=== PATIENT | male | born 1935 | race Caucasian/White ===

== ENCOUNTER 2024-06-05 17:56 | Emergency (ER) | payer MEDICARE, OTHER ==
[2024-06-05 18:50] LABS: BASOPHILS PERCENT AUTO 0.1 % (0.0-1.0); EOSINOPHILS PERCENT AUTO 0.3 % (1.0-3.0); HEMATOCRIT 31.1 % (40.0-54.0); HEMOGLOBIN 10.1 g/dL (14.0-18.0); MEAN CORPUSCULAR HEMOGLOBIN 32.2 pg (27.0-34.0); MEAN CORPUSCULAR HGB CONC 32.5 g/dL (33.0-35.0); MONOCYTES PERCENT AUTO 9.3 % (2-8); NEUTROPHILS PERCENT AUTO 84.3 % (42.2-75.2); PLATELET COUNT,PLT 154 10^3/uL (150-450); RED BLOOD CELL COUNT 3.14 10^6/uL (4.6-6.2); WHITE BLOOD CELL COUNT,WBC 7.3 10^3/uL (5.0-10.0)
[2024-06-05 19:13] LABS: ALANINE AMINOTRANSFERASE,ALT 17 U/L (16-63); ALBUMIN 3.2 g/dL (3.4-5.0); ALKALINE PHOSPHATASE 103 U/L (46-116); ANION GAP 12.9 mEq/L (7-13); ASPARTATE AMNIOTRANSFERASE,AST 22 U/L (15-37); BILIRUBIN TOTAL 0.5 mg/dL (0.2-1.0); BLOOD UREA NITROGEN,BUN 54 mg/dL (7-18); BUN/CREATININE RATIO 23.2 (No establ ref range); CALCIUM 9.6 mg/dL (8.5-10.1); CARBON DIOXIDE,CO2 24 mmol/L (21-32); CHLORIDE,CL 102 mmol/L (98-107); CREATININE 2.33 mg/dL (0.70-1.30); EST CRCL DRUG DOSING (CG) 18.25 mL/min; GLUCOSE RANDOM 111 mg/dL (70-99); MAGNESIUM 1.6 mg/dL (1.8-2.4); POTASSIUM,K 4.9 mmol/L (3.5-5.1); PROTEIN TOTAL,TP 6.6 g/dL (6.4-8.2); SODIUM,NA 134 mmol/L (136-145)
[2024-06-05 19:14] LABS: A/G RATIO 0.94; C-REACTIVE PROTEIN < 0.50 ng/dL (<=0.50); ESTIMATED GFR 27 mL/min (>=60); LACTIC ACID 0.9 mmol/L (0.4-2.0)
[2024-06-05] MEDS: Aspirin 81 MG Tab.Chew PO ONE (19:29)
[2024-06-05] MEDS: Sodium Chloride 0.9% 1,000 ML IV ONE (19:29)
[2024-06-05 19:34] LABS: APPEARANCE,URINE CLEAR (CLEAR); BILIRUBIN,URINE NEGATIVE (NEGATIVE); COLOR,URINE YELLOW (YELLOW); GLUCOSE,URINE NEGATIVE (NEGATIVE); KETONES,URINE NEGATIVE (NEGATIVE); LEUKOCYTE ESTERASE,URINE NEGATIVE (NEGATIVE); NITRITE,URINE NEGATIVE (NEGATIVE); OCCULT BLOOD,URINE SMALL (NEGATIVE); PROTEIN,URINE >=300 (NEGATIVE); UROBILINOGEN,URINE 0.2 mg/dL (0.2-1.0)
[2024-06-05 19:45] LABS: BACTERIA,URINE RARE /HPF (0-FEW/HPF); EPITHELIAL CELLS,URINE RARE /HPF (NOT SEEN); RBC,URINE 0-5 /HPF (0-5); WBC,URINE 0-5 /HPF (0-5/HPF)
[2024-06-05 20:03] VITALS: BP 167/80; PULSE 73
== END 2024-06-05 20:52 ==
LOC: DL.ED 17:56
DX: I21.4 Non-ST elevation (NSTEMI) myocardial infarction (principal); I10 Essential (primary) hypertension; Z86.16 Personal history of COVID-19; Z79.899 Other long term (current) drug therapy
CPT/HCPCS: 36415; 71045; 80053; 81001; 83605; 83735; 84484; 85025; 86140; 93005; 93010; 99285; A9270-GY; J7030

== ENCOUNTER 2024-08-25 11:37 | Emergency (ER) | payer MEDICARE, OTHER ==
[2024-08-25 12:12] LABS: BASOPHILS PERCENT AUTO 0.4 % (0.0-1.0); EOSINOPHILS PERCENT AUTO 0.2 % (1.0-3.0); HEMOGLOBIN 10.4 g/dL (14.0-18.0); MEAN CORPUSCULAR HEMOGLOBIN 31.1 pg (27.0-34.0); MEAN CORPUSCULAR HGB CONC 32.5 g/dL (33.0-35.0); MEAN CORPUSCULAR VOLUME 95.8 fL (80-100); MONOCYTES PERCENT AUTO 8.9 % (2-8); NEUTROPHILS PERCENT AUTO 83.5 % (42.2-75.2); PLATELET COUNT,PLT 277 10^3/uL (150-450); RED BLOOD CELL COUNT 3.34 10^6/uL (4.6-6.2); WHITE BLOOD CELL COUNT,WBC 10.8 10^3/uL (5.0-10.0)
[2024-08-25 12:24] LABS: ALBUMIN 3.2 g/dL (3.4-5.0); ANION GAP 16.4 mEq/L (7-13); BILIRUBIN DIRECT 0.2 mg/dL (0.0-0.2); BILIRUBIN INDIRECT 0.4; BILIRUBIN TOTAL 0.6 mg/dL (0.2-1.0); CALCIUM 8.5 mg/dL (8.5-10.1); CREATININE 2.61 mg/dL (0.70-1.30); EST CRCL DRUG DOSING (CG) 15.61 mL/min; POTASSIUM,K 4.4 mmol/L (3.5-5.1); PROTEIN TOTAL,TP 6.9 g/dL (6.4-8.2)
[2024-08-25 12:25] LABS: A/G RATIO 0.86
[2024-08-25 13:03] LABS: APPEARANCE,URINE CLEAR (CLEAR); BILIRUBIN,URINE NEGATIVE (NEGATIVE); COLOR,URINE YELLOW (YELLOW); GLUCOSE,URINE NEGATIVE (NEGATIVE); KETONES,URINE NEGATIVE (NEGATIVE); LEUKOCYTE ESTERASE,URINE NEGATIVE (NEGATIVE); NITRITE,URINE NEGATIVE (NEGATIVE); OCCULT BLOOD,URINE TRACE-INTACT (NEGATIVE); PROTEIN,URINE >=300 (NEGATIVE); UROBILINOGEN,URINE 0.2 mg/dL (0.2-1.0)
[2024-08-25 13:26] LABS: AMORPHOUS SEDIMENT,URINE FEW /HPF (NOT SEEN); BACTERIA,URINE FEW /HPF (0-FEW/HPF); EPITHELIAL CELLS,URINE RARE /HPF (NOT SEEN); FINE GRANULAR CASTS,URINE RARE /LPF (NOT SEEN); MUCUS,URINE RARE /LPF (NOT SEEN); RBC,URINE 0-5 /HPF (0-5); WBC,URINE 0-5 /HPF (0-5/HPF)
[2024-08-25 13:28] VITALS: BP 149/89; PULSE 79
[2024-08-25] MEDS: Take Home: Amoxicillin/Clavulanate K 875-125 MG Tab, 6 Tab Pack PO ONE (14:17)
[2024-08-25] MEDS: Amoxicillin/Clavulanate K 875-125 MG Tab PO ONE (14:17)
== END 2024-08-25 14:27 | disposition home or self-care (01) ==
LOC: DL.ED 11:37
DX: J18.9 Pneumonia, unspecified organism (principal); I10 Essential (primary) hypertension; Z86.16 Personal history of COVID-19; Z79.899 Other long term (current) drug therapy
CPT/HCPCS: 36415; 71045; 80048; 80076; 81001; 84484; 85025; 87040; 87428; 93005; 99285; A9270

== ENCOUNTER 2024-09-03 15:36 | Inpatient (IN) | payer MEDICARE, OTHER ==
[2024-09-03] MEDS ORDERED: Sodium Chloride 0.9% 10 ML Syringe FLUSH PRN (15:58)
[2024-09-03 16:32] LABS: BASOPHILS PERCENT AUTO 0.4 % (0.0-1.0); EOSINOPHILS PERCENT AUTO 0.7 % (1.0-3.0); HEMATOCRIT 31.3 % (40.0-54.0); HEMOGLOBIN 10.1 g/dL (14.0-18.0); LYMPHOCYTES PERCENT AUTO 8.4 % (20.5-50.1); MEAN CORPUSCULAR HEMOGLOBIN 31.2 pg (27.0-34.0); MEAN CORPUSCULAR HGB CONC 32.3 g/dL (33.0-35.0); MEAN CORPUSCULAR VOLUME 96.6 fL (80-100); MONOCYTES PERCENT AUTO 11.9 % (2-8); NEUTROPHILS PERCENT AUTO 78.6 % (42.2-75.2); PLATELET COUNT,PLT 296 10^3/uL (150-450); RED BLOOD CELL COUNT 3.24 10^6/uL (4.6-6.2); WHITE BLOOD CELL COUNT,WBC 9.3 10^3/uL (5.0-10.0)
[2024-09-03 16:45] LABS: APPEARANCE,URINE CLEAR (CLEAR); BILIRUBIN,URINE NEGATIVE (NEGATIVE); COLOR,URINE YELLOW (YELLOW); GLUCOSE,URINE NEGATIVE (NEGATIVE); KETONES,URINE NEGATIVE (NEGATIVE); LEUKOCYTE ESTERASE,URINE NEGATIVE (NEGATIVE); NITRITE,URINE NEGATIVE (NEGATIVE); OCCULT BLOOD,URINE NEGATIVE (NEGATIVE); PROTEIN,URINE >=300 (NEGATIVE); UROBILINOGEN,URINE 0.2 mg/dL (0.2-1.0)
[2024-09-03 16:49] LABS: INR 0.9 (0.9-1.2); PROTHROMBIN TIME 9.8 SEC (9.0-12.0); PTT,PARTIAL THROMBOPLSTIN TIME 24.7 SEC (22.0-34.0)
[2024-09-03 16:54] LABS: A/G RATIO 0.83; ALANINE AMINOTRANSFERASE,ALT 16 U/L (16-63); ALBUMIN 3.3 g/dL (3.4-5.0); ALKALINE PHOSPHATASE 84 U/L (46-116); ANION GAP 15.5 mEq/L (7-13); ASPARTATE AMNIOTRANSFERASE,AST 13 U/L (15-37); BILIRUBIN TOTAL 0.4 mg/dL (0.2-1.0); BLOOD UREA NITROGEN,BUN 50 mg/dL (7-18); BUN/CREATININE RATIO 21.4 (No establ ref range); C-REACTIVE PROTEIN 0.64 ng/dL (<=0.50); CALCIUM 8.8 mg/dL (8.5-10.1); CARBON DIOXIDE,CO2 23 mmol/L (21-32); CHLORIDE,CL 98 mmol/L (98-107); CREATININE 2.34 mg/dL (0.70-1.30); ESTIMATED GFR 26 mL/min (>=60); GLUCOSE RANDOM 109 mg/dL (70-99); LACTIC ACID 0.7 mmol/L (0.4-2.0); MAGNESIUM 1.9 mg/dL (1.8-2.4); POTASSIUM,K 5.5 mmol/L (3.5-5.1); PROTEIN TOTAL,TP 7.3 g/dL (6.4-8.2); SODIUM,NA 131 mmol/L (136-145)
[2024-09-03 17:01] LABS: BACTERIA,URINE FEW /HPF (0-FEW/HPF); EPITHELIAL CELLS,URINE RARE /HPF (NOT SEEN); RBC,URINE 0-5 /HPF (0-5); WBC,URINE 0-5 /HPF (0-5/HPF)
[2024-09-03] MEDS: Sodium Chloride 0.9% 500 ML IV SCH (17:55)
[2024-09-03] MEDS ORDERED: Acetaminophen 325 MG Tab PO PRN ×2 (20:13→20:56)
[2024-09-03] MEDS ORDERED: Polyethylene Glycol 3350 Powder 17 GM Packet PO PRN (20:13)
[2024-09-03] MEDS ORDERED: Ondansetron 4 MG/2 ML SDV IVPUSH PRN (20:13)
[2024-09-03] MEDS ORDERED: Melatonin 3 MG Tab PO PRN (20:13)
[2024-09-03] MEDS ORDERED: Docusate Sodium 100 MG Cap PO PRN (20:13)
[2024-09-03 21:42] LABS: ANION GAP 15.8 mEq/L (7-13); CALCIUM 8.4 mg/dL (8.5-10.1); CREATININE 2.29 mg/dL (0.70-1.30); EST CRCL DRUG DOSING (CG) 16.55 mL/min; POTASSIUM,K 4.8 mmol/L (3.5-5.1)
[2024-09-03] MEDS: cefTRIAXone 1 GM Vial IVPUSH SCH (23:07)
[2024-09-03] MEDS: Azithromycin 500 MG in Sodium Chloride 0.9% 250 ML IV SCH (23:08)
[2024-09-03] MEDS: Lisinopril 5 MG Tab PO SCH (23:16)
[2024-09-03] MEDS: TACROLIMUS 1 MG PO SCH (23:17)
[2024-09-03] MEDS: Calcium Carbonate/Vitamin D3 1250 MG-5 MCG Tab PO SCH (23:17)
[2024-09-03] MEDS: Calcitriol 0.25 MCG Cap PO SCH (23:17)
[2024-09-03] MEDS: Mycophenolate Mofetil 250 MG Cap PO SCH (23:17)
[2024-09-03] MEDS: Albuterol/Ipratropium 3.0-0.5 MG/3 ML Neb Soln NEB SCH (23:18)
[2024-09-03] MEDS: Dorzolamide/Timolol 2%-0.5% Ophth Soln 10 ML Bottle EYERT SCH (23:18)
[2024-09-04 06:33] LABS: BASOPHILS PERCENT AUTO 0.8 % (0.0-1.0); EOSINOPHILS PERCENT AUTO 0.8 % (1.0-3.0); HEMATOCRIT 29.1 % (40.0-54.0); HEMOGLOBIN 9.3 g/dL (14.0-18.0); LYMPHOCYTES PERCENT AUTO 9.4 % (20.5-50.1); MONOCYTES PERCENT AUTO 12.2 % (2-8); NEUTROPHILS PERCENT AUTO 76.8 % (42.2-75.2); PLATELET COUNT,PLT 230 10^3/uL (150-450); WHITE BLOOD CELL COUNT,WBC 6.5 10^3/uL (5.0-10.0)
[2024-09-04 07:33] LABS: ALANINE AMINOTRANSFERASE,ALT 14 U/L (16-63); ALBUMIN 2.7 g/dL (3.4-5.0); ALKALINE PHOSPHATASE 74 U/L (46-116); ANION GAP 14.1 mEq/L (7-13); ASPARTATE AMNIOTRANSFERASE,AST 12 U/L (15-37); BILIRUBIN TOTAL 0.4 mg/dL (0.2-1.0); BLOOD UREA NITROGEN,BUN 46 mg/dL (7-18); BUN/CREATININE RATIO 20.4 (No establ ref range); C-REACTIVE PROTEIN 1.21 ng/dL (<=0.50); CALCIUM 8.7 mg/dL (8.5-10.1); CARBON DIOXIDE,CO2 23 mmol/L (21-32); CHLORIDE,CL 102 mmol/L (98-107); CREATININE 2.26 mg/dL (0.70-1.30); EST CRCL DRUG DOSING (CG) 16.77 mL/min; GLUCOSE RANDOM 106 mg/dL (70-99); MAGNESIUM 1.8 mg/dL (1.8-2.4); POTASSIUM,K 5.1 mmol/L (3.5-5.1); PROTEIN TOTAL,TP 6.3 g/dL (6.4-8.2); SODIUM,NA 134 mmol/L (136-145); TSH ULTRASENSITIVE 3.39 uIU/mL (0.36-3.74)
[2024-09-04 07:36] LABS: A/G RATIO 0.75; ESTIMATED GFR 27 mL/min (>=60); FOLIC ACID > 20.0 ng/mL (8.6-58.9)
[2024-09-04] MEDS ORDERED: URSODIOL 250 MG PO SCH ×3 (09:00)
[2024-09-04] MEDS: Allopurinol 100 MG Tab PO SCH (10:38)
[2024-09-04] MEDS: amLODIPine 5 MG Tab PO SCH (10:38)
[2024-09-04] MEDS: Multivitamin Tab PO SCH (10:38)
[2024-09-04] MEDS: Metoprolol Succinate 25 MG Tab.ER PO SCH (10:39)
[2024-09-04] MEDS: URSODIOL 250 MG PO SCH (10:40)
[2024-09-04] MEDS: TACROLIMUS 0.5 MG PO SCH (10:41)
[2024-09-04] MEDS: Enoxaparin 40 MG/0.4 ML Syringe SUBCUT SCH (10:42)
[2024-09-04] MEDS: Chlorthalidone 25 MG Tab PO ONE (14:26)
[2024-09-04] MEDS: Melatonin 3 MG Tab PO PRN (22:14)
[2024-09-04] MEDS: Zolpidem 5 MG Tab PO PRN (22:14)
[2024-09-05 06:31] LABS: BASOPHILS PERCENT AUTO 0.8 % (0.0-1.0); EOSINOPHILS PERCENT AUTO 1.7 % (1.0-3.0); HEMATOCRIT 27.3 % (40.0-54.0); HEMOGLOBIN 8.7 g/dL (14.0-18.0); LYMPHOCYTES PERCENT AUTO 16.6 % (20.5-50.1); MEAN CORPUSCULAR HEMOGLOBIN 31.1 pg (27.0-34.0); MEAN CORPUSCULAR HGB CONC 31.9 g/dL (33.0-35.0); MEAN CORPUSCULAR VOLUME 97.5 fL (80-100); MONOCYTES PERCENT AUTO 15.3 % (2-8); NEUTROPHILS PERCENT AUTO 65.6 % (42.2-75.2); PLATELET COUNT,PLT 205 10^3/uL (150-450)
[2024-09-05 06:52] LABS: A/G RATIO 0.71; ALBUMIN 2.5 g/dL (3.4-5.0); ANION GAP 16.6 mEq/L (7-13); BILIRUBIN TOTAL 0.4 mg/dL (0.2-1.0); BUN/CREATININE RATIO 21.4 (No establ ref range); CALCIUM 8.5 mg/dL (8.5-10.1); CREATININE 2.29 mg/dL (0.70-1.30); EST CRCL DRUG DOSING (CG) 16.55 mL/min; MAGNESIUM 1.7 mg/dL (1.8-2.4); POTASSIUM,K 4.6 mmol/L (3.5-5.1)
[2024-09-05] MEDS: Tamsulosin 0.4 MG Cap.ER PO SCH (10:55)
[2024-09-05 12:34] VITALS: BP 142/64; PULSE 67
[2024-09-05] MEDS ORDERED: Magnesium Oxide 400 MG Tab PO SCH (18:00)
== END 2024-09-05 15:15 | disposition home or self-care (01) | DRG 177 ==
LOC: DL.ED 15:36 → DL.MS 18:16
PROVIDERS: ADMIT Internal Medicine; ATTEND Student in an Organized Health Care Education/Training Program
DX: U07.1 COVID-19 (principal); J90 Pleural effusion, not elsewhere classified; J12.82 Pneumonia due to coronavirus disease 2019; J18.9 Pneumonia, unspecified organism; I48.92 Unspecified atrial flutter; E87.1 Hypo-osmolality and hyponatremia; Z94.4 Liver transplant status; Z86.16 Personal history of COVID-19; J91.8 Pleural effusion in other conditions classified elsewhere; I12.9 Hypertensive chronic kidney disease with stage 1 through stage 4 chronic kidney disease, or unspecified chronic kidney disease; N18.9 Chronic kidney disease, unspecified; D53.9 Nutritional anemia, unspecified; H35.30 Unspecified macular degeneration; R79.89 Other specified abnormal findings of blood chemistry; R80.9 Proteinuria, unspecified; E87.5 Hyperkalemia; F10.90 Alcohol use, unspecified, uncomplicated; E83.42 Hypomagnesemia; E88.09 Other disorders of plasma-protein metabolism, not elsewhere classified; Z87.891 Personal history of nicotine dependence; Z79.899 Other long term (current) drug therapy; Z98.890 Other specified postprocedural states
CPT/HCPCS: 36415; 71046; 80053; 81001; 82140; 83605; 83735; 83880; 84145; 84484; 85025; 85610; 85730; 86140; 87040 ×2; 93005; 99285; J7040; 51798; 80048; 82607; 82746; 84443; 93010; 94640; 97165-GO; 99223; 99232; 99238; A9270-GY; J0456; J0696; J1650; J7050; J7620-GY

== ENCOUNTER 2024-10-31 11:10 | Emergency (ER) | payer MEDICARE, OTHER ==
[2024-10-31 12:22] LABS: BASOPHILS PERCENT AUTO 0.2 % (0.0-1.0); EOSINOPHILS PERCENT AUTO 0.6 % (1.0-3.0); HEMATOCRIT 32.3 % (40.0-54.0); HEMOGLOBIN 10.4 g/dL (14.0-18.0); LYMPHOCYTES PERCENT AUTO 14.7 % (20.5-50.1); MEAN CORPUSCULAR HEMOGLOBIN 32.1 pg (27.0-34.0); MEAN CORPUSCULAR HGB CONC 32.2 g/dL (33.0-35.0); MEAN CORPUSCULAR VOLUME 99.7 fL (80-100); MONOCYTES PERCENT AUTO 7.3 % (2-8); NEUTROPHILS PERCENT AUTO 77.2 % (42.2-75.2); PLATELET COUNT,PLT 201 10^3/uL (150-450); RED BLOOD CELL COUNT 3.24 10^6/uL (4.6-6.2); WHITE BLOOD CELL COUNT,WBC 5.5 10^3/uL (5.0-10.0)
[2024-10-31 12:44] LABS: ALBUMIN 3.1 g/dL (3.4-5.0); ANION GAP 14.5 mEq/L (7-13); BILIRUBIN TOTAL 0.4 mg/dL (0.2-1.0); BUN/CREATININE RATIO 21.8 (No establ ref range); CALCIUM 9.2 mg/dL (8.5-10.1); CREATININE 2.57 mg/dL (0.70-1.30); EST CRCL DRUG DOSING (CG) 15.95 mL/min; INR 0.9 (0.9-1.2); MAGNESIUM 1.7 mg/dL (1.8-2.4); POTASSIUM,K 5.5 mmol/L (3.5-5.1); PROTEIN TOTAL,TP 7.1 g/dL (6.4-8.2); PROTHROMBIN TIME 9.9 SEC (9.0-12.0); PTT,PARTIAL THROMBOPLSTIN TIME 27.4 SEC (22.0-34.0)
[2024-10-31 12:45] LABS: A/G RATIO 0.78; LACTIC ACID 0.9 mmol/L (0.4-2.0)
[2024-10-31] MEDS: Sodium Chloride 0.9% 10 ML Syringe FLUSH PRN (13:10)
[2024-10-31] MEDS: Sodium Chloride 0.9% 1,000 ML IV SCH (13:10)
[2024-10-31 15:39] VITALS: PULSE 56
[2024-10-31] MEDS: Sodium Zirconium Cyclosilicate 5 GM Packet PO ONE (15:51)
[2024-10-31 16:01] VITALS: BP 168/91
== END 2024-10-31 15:54 ==
LOC: DL.ED 11:10
DX: I48.91 Unspecified atrial fibrillation (principal); J90 Pleural effusion, not elsewhere classified; E87.5 Hyperkalemia; R00.1 Bradycardia, unspecified; R79.89 Other specified abnormal findings of blood chemistry; I10 Essential (primary) hypertension; Z88.0 Allergy status to penicillin; Z88.8 Allergy status to other drugs, medicaments and biological substances; Z88.2 Allergy status to sulfonamides; Z79.899 Other long term (current) drug therapy; Z79.01 Long term (current) use of anticoagulants; Z86.16 Personal history of COVID-19
CPT/HCPCS: 36415; 71045; 80053; 83605; 83735; 84484; 85025; 85610; 85730; 93005; 96360; 96361; 99285; J7030; 93010; J3490

== ENCOUNTER 2024-12-25 09:27 | Emergency (ER) | payer MEDICARE, OTHER ==
[2024-12-25] MEDS ORDERED: Sodium Chloride 0.9% 10 ML Syringe FLUSH PRN (09:49)
[2024-12-25 10:07] LABS: BASOPHILS PERCENT AUTO 0.6 % (0.0-1.0); EOSINOPHILS PERCENT AUTO 0.9 % (1.0-3.0); HEMATOCRIT 29.6 % (40.0-54.0); HEMOGLOBIN 10.2 g/dL (14.0-18.0); LYMPHOCYTES PERCENT AUTO 13.3 % (20.5-50.1); MEAN CORPUSCULAR HEMOGLOBIN 33.9 pg (27.0-34.0); MEAN CORPUSCULAR HGB CONC 34.5 g/dL (33.0-35.0); MEAN CORPUSCULAR VOLUME 98.3 fL (80-100); MONOCYTES PERCENT AUTO 7.4 % (2-8); NEUTROPHILS PERCENT AUTO 77.8 % (42.2-75.2); PLATELET COUNT,PLT 186 10^3/uL (150-450); RED BLOOD CELL COUNT 3.01 10^6/uL (4.6-6.2); WHITE BLOOD CELL COUNT,WBC 6.9 10^3/uL (5.0-10.0)
[2024-12-25 10:24] LABS: PROTHROMBIN TIME 10.1 SEC (9.0-12.0)
[2024-12-25 10:31] LABS: ANION GAP 14.1 mEq/L (7-13); BILIRUBIN TOTAL 0.5 mg/dL (0.2-1.0); BUN/CREATININE RATIO 21.5 (No establ ref range); CALCIUM 8.9 mg/dL (8.5-10.1); CREATININE 2.6 mg/dL (0.70-1.30); EST CRCL DRUG DOSING (CG) 15.62 mL/min; MAGNESIUM 1.8 mg/dL (1.8-2.4); POTASSIUM,K 4.1 mmol/L (3.5-5.1); PROTEIN TOTAL,TP 6.9 g/dL (6.4-8.2)
[2024-12-25 10:32] LABS: A/G RATIO 0.77
[2024-12-25 11:21] LABS: APPEARANCE,URINE CLEAR (CLEAR); BILIRUBIN,URINE NEGATIVE (NEGATIVE); COLOR,URINE YELLOW (YELLOW); GLUCOSE,URINE NEGATIVE (NEGATIVE); KETONES,URINE NEGATIVE (NEGATIVE); LEUKOCYTE ESTERASE,URINE NEGATIVE (NEGATIVE); NITRITE,URINE NEGATIVE (NEGATIVE); OCCULT BLOOD,URINE TRACE-INTACT (NEGATIVE); PH,URINE 6.5 (5.0-9.0); PROTEIN,URINE >=300 (NEGATIVE); UROBILINOGEN,URINE 0.2 mg/dL (0.2-1.0)
[2024-12-25 11:24] VITALS: BP 164/92; PULSE 59
[2024-12-25 11:33] LABS: BACTERIA,URINE FEW /HPF (0-FEW/HPF); EPITHELIAL CELLS,URINE FEW /HPF (NOT SEEN); MUCUS,URINE FEW /LPF (NOT SEEN); RBC,URINE 0-5 /HPF (0-5); WBC,URINE 0-5 /HPF (0-5/HPF)
== END 2024-12-25 11:40 | disposition home or self-care (01) ==
LOC: DL.ED 09:27
DX: I62.03 Nontraumatic chronic subdural hemorrhage (principal); I10 Essential (primary) hypertension; Z88.0 Allergy status to penicillin; Z88.2 Allergy status to sulfonamides; Z88.8 Allergy status to other drugs, medicaments and biological substances; Z79.899 Other long term (current) drug therapy; Z86.16 Personal history of COVID-19; Z79.01 Long term (current) use of anticoagulants
CPT/HCPCS: 36415; 70450; 71046; 80053; 81001; 83735; 83880; 84484; 85025; 85610; 99285

== ENCOUNTER 2025-01-13 14:00 | Emergency (ER) | payer MEDICARE, OTHER ==
[2025-01-13] MEDS ORDERED: Sodium Chloride 0.9% 10 ML Syringe FLUSH PRN (14:16)
[2025-01-13 14:26] LABS: BASOPHILS PERCENT AUTO 0.3 % (0.0-1.0); EOSINOPHILS PERCENT AUTO 0.7 % (1.0-3.0); HEMATOCRIT 28.4 % (40.0-54.0); HEMOGLOBIN 9.1 g/dL (14.0-18.0); LYMPHOCYTES PERCENT AUTO 13.5 % (20.5-50.1); MEAN CORPUSCULAR HEMOGLOBIN 31.6 pg (27.0-34.0); MEAN CORPUSCULAR VOLUME 98.6 fL (80-100); MONOCYTES PERCENT AUTO 9.3 % (2-8); NEUTROPHILS PERCENT AUTO 76.2 % (42.2-75.2); PLATELET COUNT,PLT 207 10^3/uL (150-450); RED BLOOD CELL COUNT 2.88 10^6/uL (4.6-6.2); WHITE BLOOD CELL COUNT,WBC 6.8 10^3/uL (5.0-10.0)
[2025-01-13 14:26] LABS: APPEARANCE,URINE CLEAR (CLEAR); BILIRUBIN,URINE NEGATIVE (NEGATIVE); COLOR,URINE YELLOW (YELLOW); GLUCOSE,URINE NEGATIVE (NEGATIVE); KETONES,URINE NEGATIVE (NEGATIVE); LEUKOCYTE ESTERASE,URINE NEGATIVE (NEGATIVE); NITRITE,URINE NEGATIVE (NEGATIVE); OCCULT BLOOD,URINE TRACE-INTACT (NEGATIVE); PROTEIN,URINE >=300 (NEGATIVE); UROBILINOGEN,URINE 0.2 mg/dL (0.2-1.0)
[2025-01-13 14:39] LABS: BACTERIA,URINE FEW /HPF (0-FEW/HPF); EPITHELIAL CELLS,URINE FEW /HPF (NOT SEEN); HYALINE CASTS,URINE RARE; MUCUS,URINE RARE /LPF (NOT SEEN); WBC,URINE 0-5 /HPF (0-5/HPF)
[2025-01-13 14:43] LABS: A/G RATIO 0.74; ALANINE AMINOTRANSFERASE,ALT 21 U/L (16-63); ALBUMIN 2.9 g/dL (3.4-5.0); ALKALINE PHOSPHATASE 100 U/L (46-116); ANION GAP 14.7 mEq/L (7-13); ASPARTATE AMNIOTRANSFERASE,AST 17 U/L (15-37); BILIRUBIN TOTAL 0.3 mg/dL (0.2-1.0); BLOOD UREA NITROGEN,BUN 52 mg/dL (7-18); BUN/CREATININE RATIO 18.4 (No establ ref range); C-REACTIVE PROTEIN < 0.50 ng/dL (<=0.50); CALCIUM 8.9 mg/dL (8.5-10.1); CARBON DIOXIDE,CO2 25 mmol/L (21-32); CHLORIDE,CL 101 mmol/L (98-107); CREATININE 2.83 mg/dL (0.70-1.30); EST CRCL DRUG DOSING (CG) 14.51 mL/min; ESTIMATED GFR 21 mL/min (>=60); GLUCOSE RANDOM 135 mg/dL (70-99); MAGNESIUM 1.8 mg/dL (1.8-2.4); POTASSIUM,K 4.7 mmol/L (3.5-5.1); PROTEIN TOTAL,TP 6.8 g/dL (6.4-8.2); SODIUM,NA 136 mmol/L (136-145)
[2025-01-13 14:46] LABS: LACTIC ACID 0.5 mmol/L (0.4-2.0)
[2025-01-13 15:17] LABS: PERCENT FE SATURATION 29.9 % (20.0-50.0)
[2025-01-13] MEDS: Sodium Chloride 0.9% 1,000 ML IV ONE (15:19)
[2025-01-13 15:54] VITALS: BP 149/71; PULSE 60
[2025-01-13 16:15] LABS: FOLIC ACID > 20.0 ng/mL (8.6-58.9)
== END 2025-01-13 16:12 | disposition home or self-care (01) ==
LOC: DL.ED 14:00
DX: E86.0 Dehydration (principal); I12.9 Hypertensive chronic kidney disease with stage 1 through stage 4 chronic kidney disease, or unspecified chronic kidney disease; N18.9 Chronic kidney disease, unspecified; Z86.16 Personal history of COVID-19; Z79.899 Other long term (current) drug therapy; Z88.8 Allergy status to other drugs, medicaments and biological substances; Z88.2 Allergy status to sulfonamides; Z88.0 Allergy status to penicillin
CPT/HCPCS: 36415; 70450; 80053; 81001; 82607; 82746; 83540; 83550; 83605; 83735; 85025; 86140; 93005; 96360; 99285; J7030; 93010; 99284

== ENCOUNTER 2025-01-15 19:46 | Inpatient (IN) | payer MEDICARE, OTHER ==
[2025-01-15] MEDS ORDERED: Sodium Chloride 0.9% 10 ML Syringe FLUSH PRN (20:29)
[2025-01-15 20:37] LABS: APPEARANCE,URINE CLEAR (CLEAR); BILIRUBIN,URINE NEGATIVE (NEGATIVE); COLOR,URINE YELLOW (YELLOW); GLUCOSE,URINE 100 (NEGATIVE); KETONES,URINE NEGATIVE (NEGATIVE); LEUKOCYTE ESTERASE,URINE NEGATIVE (NEGATIVE); NITRITE,URINE NEGATIVE (NEGATIVE); OCCULT BLOOD,URINE SMALL (NEGATIVE); PH,URINE 5.5 (5.0-9.0); PROTEIN,URINE >=300 (NEGATIVE); UROBILINOGEN,URINE 0.2 mg/dL (0.2-1.0)
[2025-01-15 21:00] LABS: BASOPHILS PERCENT AUTO 0.3 % (0.0-1.0); EOSINOPHILS PERCENT AUTO 0.5 % (1.0-3.0); HEMATOCRIT 28.1 % (40.0-54.0); HEMOGLOBIN 9.3 g/dL (14.0-18.0); LYMPHOCYTES PERCENT AUTO 10.4 % (20.5-50.1); MEAN CORPUSCULAR HEMOGLOBIN 32.2 pg (27.0-34.0); MEAN CORPUSCULAR HGB CONC 33.1 g/dL (33.0-35.0); MEAN CORPUSCULAR VOLUME 97.2 fL (80-100); MONOCYTES PERCENT AUTO 11.5 % (2-8); NEUTROPHILS PERCENT AUTO 77.3 % (42.2-75.2); PLATELET COUNT,PLT 203 10^3/uL (150-450); RED BLOOD CELL COUNT 2.89 10^6/uL (4.6-6.2); WHITE BLOOD CELL COUNT,WBC 7.4 10^3/uL (5.0-10.0)
[2025-01-15 21:06] LABS: WBC,URINE NOT SEEN /HPF (0-5/HPF)
[2025-01-15 21:07] LABS: BACTERIA,URINE OCCASIONAL /HPF (0-FEW/HPF); EPITHELIAL CELLS,URINE FEW /HPF (NOT SEEN); MUCUS,URINE RARE /LPF (NOT SEEN); RBC,URINE 0-5 /HPF (0-5)
[2025-01-15 21:19] LABS: B-TYPE NATRIURETIC PEPTIDE,BNP 720 pg/ml (0-100)
[2025-01-15 21:22] LABS: LACTIC ACID 0.7 mmol/L (0.4-2.0)
[2025-01-15 21:29] LABS: ALANINE AMINOTRANSFERASE,ALT 19 U/L (16-63); ALKALINE PHOSPHATASE 97 U/L (46-116); ANION GAP 15.2 mEq/L (7-13); ASPARTATE AMNIOTRANSFERASE,AST 21 U/L (15-37); BILIRUBIN TOTAL 0.4 mg/dL (0.2-1.0); BLOOD UREA NITROGEN,BUN 50 mg/dL (7-18); CALCIUM 8.9 mg/dL (8.5-10.1); CARBON DIOXIDE,CO2 22 mmol/L (21-32); CHLORIDE,CL 100 mmol/L (98-107); CREATININE 2.78 mg/dL (0.70-1.30); GLUCOSE RANDOM 148 mg/dL (70-99); MAGNESIUM 1.7 mg/dL (1.8-2.4); POTASSIUM,K 4.2 mmol/L (3.5-5.1); PROTEIN TOTAL,TP 6.9 g/dL (6.4-8.2); SODIUM,NA 133 mmol/L (136-145)
[2025-01-15 21:30] LABS: A/G RATIO 0.77; C-REACTIVE PROTEIN < 0.50 ng/dL (<=0.50); ESTIMATED GFR 21 mL/min (>=60); INR 0.9 (0.9-1.2); PROTHROMBIN TIME 9.7 SEC (9.0-12.0); PTT,PARTIAL THROMBOPLSTIN TIME 25.8 SEC (22.0-34.0)
[2025-01-16 01:02] LABS: PERCENT FE SATURATION 17.6 % (20.0-50.0)
[2025-01-16 01:50] LABS: FOLIC ACID > 20.0 ng/mL (8.6-58.9)
[2025-01-16] MEDS: Allopurinol 100 MG Tab PO SCH (11:05)
[2025-01-16] MEDS: amLODIPine 5 MG Tab PO SCH (11:06)
[2025-01-16] MEDS: Metoprolol Succinate 25 MG Tab.ER PO SCH (11:06)
[2025-01-16] MEDS: Magnesium Sulfat/D5W 1GM/100ML 1 GM in Premix Bag 1 BAG IV ONE (11:07)
[2025-01-16] MEDS: TACROLIMUS 0.5 MG PO SCH (11:56)
[2025-01-16] MEDS: Magnesium Oxide 400 MG Tab PO SCH (17:28)
[2025-01-16] MEDS: TACROLIMUS 1 MG PO SCH (21:05)
[2025-01-16] MEDS: Dorzolamide/Timolol 2%-0.5% Ophth Soln 10 ML Bottle EYERT SCH (21:05)
[2025-01-16] MEDS: Mycophenolate Mofetil 250 MG Cap PO SCH (21:05)
[2025-01-17 06:07] LABS: BASOPHILS PERCENT AUTO 0.3 % (0.0-1.0); EOSINOPHILS PERCENT AUTO 0.7 % (1.0-3.0); HEMATOCRIT 26.9 % (40.0-54.0); HEMOGLOBIN 8.6 g/dL (14.0-18.0); LYMPHOCYTES PERCENT AUTO 6.6 % (20.5-50.1); MEAN CORPUSCULAR HEMOGLOBIN 31.6 pg (27.0-34.0); MEAN CORPUSCULAR VOLUME 98.9 fL (80-100); NEUTROPHILS PERCENT AUTO 80.4 % (42.2-75.2); PLATELET COUNT,PLT 181 10^3/uL (150-450); RED BLOOD CELL COUNT 2.72 10^6/uL (4.6-6.2); WHITE BLOOD CELL COUNT,WBC 7.6 10^3/uL (5.0-10.0)
[2025-01-17 06:27] LABS: ANION GAP 15.1 mEq/L (7-13); CALCIUM 8.6 mg/dL (8.5-10.1); CREATININE 2.75 mg/dL (0.70-1.30); EST CRCL DRUG DOSING (CG) 14.72 mL/min; POTASSIUM,K 4.1 mmol/L (3.5-5.1)
[2025-01-17] MEDS: URSODIOL PO SCH (08:23)
[2025-01-17] MEDS: Multivitamin Tab PO SCH (08:24)
[2025-01-17] MEDS: Lactulose Soln 10 GM/15 ML 30 ML UD Cup PO ONE (12:02)
[2025-01-18 06:40] LABS: BASOPHILS PERCENT AUTO 0.1 % (0.0-1.0); EOSINOPHILS PERCENT AUTO 1.2 % (1.0-3.0); HEMATOCRIT 26.7 % (40.0-54.0); HEMOGLOBIN 8.7 g/dL (14.0-18.0); LYMPHOCYTES PERCENT AUTO 7.8 % (20.5-50.1); MEAN CORPUSCULAR HEMOGLOBIN 32.3 pg (27.0-34.0); MEAN CORPUSCULAR HGB CONC 32.6 g/dL (33.0-35.0); MEAN CORPUSCULAR VOLUME 99.3 fL (80-100); MONOCYTES PERCENT AUTO 13.8 % (2-8); NEUTROPHILS PERCENT AUTO 77.1 % (42.2-75.2); PLATELET COUNT,PLT 200 10^3/uL (150-450); RED BLOOD CELL COUNT 2.69 10^6/uL (4.6-6.2); WHITE BLOOD CELL COUNT,WBC 6.8 10^3/uL (5.0-10.0)
[2025-01-18] MEDS: Ferrous Sulfate 325 MG Tab PO SCH (08:48)
[2025-01-18 12:28] VITALS: BP 132/68; PULSE 98
== END 2025-01-18 12:20 | DRG 948 ==
LOC: DL.ED 19:46 → DL.MS 23:01
PROVIDERS: ADMIT Internal Medicine; ATTEND Internal Medicine
DX: R53.1 Weakness (principal); R41.81 Age-related cognitive decline; I10 Essential (primary) hypertension; R53.81 Other malaise; Z94.4 Liver transplant status; Z91.09 Other allergy status, other than to drugs and biological substances; Z68.1 Body mass index [BMI] 19.9 or less, adult; I48.92 Unspecified atrial flutter; E83.42 Hypomagnesemia; H54.7 Unspecified visual loss; K59.00 Constipation, unspecified; F03.90 Unspecified dementia, unspecified severity, without behavioral disturbance, psychotic disturbance, mood disturbance, and anxiety; R62.7 Adult failure to thrive; I48.91 Unspecified atrial fibrillation; I12.9 Hypertensive chronic kidney disease with stage 1 through stage 4 chronic kidney disease, or unspecified chronic kidney disease; D63.1 Anemia in chronic kidney disease; Z86.16 Personal history of COVID-19; Z95.0 Presence of cardiac pacemaker; Z88.1 Allergy status to other antibiotic agents; Z88.8 Allergy status to other drugs, medicaments and biological substances; Z88.0 Allergy status to penicillin; Z88.2 Allergy status to sulfonamides; Z79.899 Other long term (current) drug therapy; Z79.01 Long term (current) use of anticoagulants; I25.2 Old myocardial infarction; Z86.79 Personal history of other diseases of the circulatory system
CPT/HCPCS: 36415; 71045; 80048; 80053; 81001; 82272; 82607; 82746; 82947; 83540; 83550; 83605; 83735; 83880; 84484; 85025; 85610; 85730; 86140; 93005; 93010; 97161-GP; 97165-GO; 99223; 99233; 99239; 99285; A9270-GY; J3475

== ENCOUNTER 2025-03-25 17:05 | Inpatient (IN) | payer MEDICARE, OTHER ==
[2025-03-25 17:51] LABS: PLATELET COUNT,PLT 237 10^3/uL (150-450); RED BLOOD CELL COUNT 2.86 10^6/uL (4.6-6.2); WHITE BLOOD CELL COUNT,WBC 6.8 10^3/uL (5.0-10.0)
[2025-03-25 17:52] LABS: BASOPHILS PERCENT AUTO 0.1 % (0.0-1.0); EOSINOPHILS PERCENT AUTO 2.5 % (1.0-3.0); LYMPHOCYTES PERCENT AUTO 9.1 % (20.5-50.1); MONOCYTES PERCENT AUTO 9.1 % (2-8); NEUTROPHILS PERCENT AUTO 79.2 % (42.2-75.2)
[2025-03-25 18:02] LABS: A/G RATIO 0.88; ALANINE AMINOTRANSFERASE,ALT 17.0 U/L (16-63); ASPARTATE AMNIOTRANSFERASE,AST 17.0 U/L (15-37); BILIRUBIN TOTAL 0.3 mg/dL (0.2-1.0); BLOOD UREA NITROGEN,BUN 66.0 mg/dL (7-18); CARBON DIOXIDE,CO2 21.0 mmol/L (21-32); CHLORIDE,CL 105.0 mmol/L (98-107); CREATININE 2.79 mg/dL (0.70-1.30); EST CRCL DRUG DOSING (CG) 15.8 mL/min; ESTIMATED GFR 21.0 mL/min (>=60); GLUCOSE RANDOM 105.0 mg/dL (70-99); POTASSIUM,K 4.6 mmol/L (3.5-5.1); PROTEIN TOTAL,TP 6.2 g/dL (6.4-8.2); SODIUM,NA 135.0 mmol/L (136-145)
[2025-03-25 18:06] LABS: B-TYPE NATRIURETIC PEPTIDE,BNP 498.0 pg/ml (0-100)
[2025-03-25 18:48] LABS: BAND PERCENT MAN 1 %; EOSINOPHILS PERCENT MAN 2 % (1-3); LYMPHOCYTES PERCENT MAN 10 % (20-50); MONOCYTES PERCENT MAN 5 % (2-8); SEG NEUTROPHILS PERCENT MAN 82 % (42-75)
[2025-03-25 20:56] LABS: T4 FREE 0.99 ng/dL (0.76-1.46); TSH ULTRASENSITIVE 7.34 uIU/mL (0.36-3.74)
[2025-03-25] MEDS ORDERED: Metoprolol Tartrate 5 MG/5 ML SDV IVPUSH PRN (21:32)
[2025-03-25] MEDS ORDERED: hydrALAZINE 20 MG/ML SDV IVPUSH PRN (21:32)
[2025-03-25] MEDS ORDERED: Ondansetron 4 MG/2 ML SDV IVPUSH PRN (21:33)
[2025-03-25] MEDS ORDERED: Magnesium Hydroxide 400 MG/5 ML Susp 30 ML Cup PO PRN (21:33)
[2025-03-25] MEDS ORDERED: Sennosides/Docusate Sodium 50-8.6 MG Tab PO PRN (21:33)
[2025-03-25] MEDS ORDERED: Sodium Chloride 0.9% 10 ML Syringe FLUSH PRN (21:33)
[2025-03-25] MEDS: Magnesium Sulfate 2 GM/50 mL 2 GM in Premix Bag 1 BAG IV ONE (23:11)
[2025-03-26] MEDS: TACROLIMUS 0.5 MG PO SCH (02:15)
[2025-03-26 06:34] LABS: PLATELET COUNT,PLT 187 10^3/uL (150-450); RED BLOOD CELL COUNT 2.55 10^6/uL (4.6-6.2); WHITE BLOOD CELL COUNT,WBC 5.8 10^3/uL (5.0-10.0)
[2025-03-26 06:38] LABS: BASOPHILS PERCENT AUTO 0.3 % (0.0-1.0); EOSINOPHILS PERCENT AUTO 2.1 % (1.0-3.0); LYMPHOCYTES PERCENT AUTO 9.5 % (20.5-50.1); MONOCYTES PERCENT AUTO 10.9 % (2-8); NEUTROPHILS PERCENT AUTO 77.2 % (42.2-75.2)
[2025-03-26 06:52] LABS: ALANINE AMINOTRANSFERASE,ALT 16 U/L (16-63); ASPARTATE AMNIOTRANSFERASE,AST 14 U/L (15-37); BILIRUBIN TOTAL 0.2 mg/dL (0.2-1.0); BLOOD UREA NITROGEN,BUN 61 mg/dL (7-18); CARBON DIOXIDE,CO2 22 mmol/L (21-32); CHLORIDE,CL 107 mmol/L (98-107); CREATININE 2.79 mg/dL (0.70-1.30); EST CRCL DRUG DOSING (CG) 15.29 mL/min; GLUCOSE RANDOM 78 mg/dL (70-99); POTASSIUM,K 4.5 mmol/L (3.5-5.1); PROTEIN TOTAL,TP 5.2 g/dL (6.4-8.2); SODIUM,NA 137 mmol/L (136-145)
[2025-03-26 06:53] LABS: A/G RATIO 0.86; ESTIMATED GFR 21 mL/min (>=60)
[2025-03-26 07:06] LABS: BAND PERCENT MAN 2 %; EOSINOPHILS PERCENT MAN 5 % (1-3); LYMPHOCYTES PERCENT MAN 10 % (20-50); MONOCYTES PERCENT MAN 5 % (2-8); SEG NEUTROPHILS PERCENT MAN 78 % (42-75)
[2025-03-26] MEDS ORDERED: TACROLIMUS 1 MG PO SCH (09:00)
[2025-03-26] MEDS: TACROLIMUS 1 MG PO SCH (09:04)
[2025-03-26] MEDS: MYCOPHENOLATE PO SCH (09:05)
[2025-03-26] MEDS: Calcium Carbonate/Vitamin D3 1250 MG-5 MCG Tab PO SCH (09:07)
[2025-03-26] MEDS: Saccharomyces Boulardii (Probiotic) 250 MG Cap PO SCH (09:07)
[2025-03-26] MEDS: Dorzolamide/Timolol 2%-0.5% Ophth Soln 10 ML Bottle EYERT SCH (09:08)
[2025-03-26] MEDS: Sodium Chloride 0.9% 10 ML Syringe FLUSH SCH (10:33)
[2025-03-26] MEDS: Benzocaine/Docusate Sodium 20-283 MG/5 ML Enema RECTAL ONE (10:34)
[2025-03-26] MEDS: Lactulose Soln 10 GM/15 ML 30 ML UD Cup PO ONE (10:34)
[2025-03-27 06:30] LABS: BASOPHILS PERCENT AUTO 0.2 % (0.0-1.0); EOSINOPHILS PERCENT AUTO 2.0 % (1.0-3.0); LYMPHOCYTES PERCENT AUTO 7.9 % (20.5-50.1); MONOCYTES PERCENT AUTO 10.1 % (2-8); NEUTROPHILS PERCENT AUTO 79.8 % (42.2-75.2); PLATELET COUNT,PLT 186 10^3/uL (150-450); RED BLOOD CELL COUNT 2.57 10^6/uL (4.6-6.2); WHITE BLOOD CELL COUNT,WBC 6.6 10^3/uL (5.0-10.0)
[2025-03-27 07:11] LABS: ALANINE AMINOTRANSFERASE,ALT 13.0 U/L (16-63); ASPARTATE AMNIOTRANSFERASE,AST 14.0 U/L (15-37); BILIRUBIN TOTAL 0.3 mg/dL (0.2-1.0); BLOOD UREA NITROGEN,BUN 59.0 mg/dL (7-18); CARBON DIOXIDE,CO2 22.0 mmol/L (21-32); CHLORIDE,CL 107.0 mmol/L (98-107); CREATININE 2.7 mg/dL (0.70-1.30); EST CRCL DRUG DOSING (CG) 15.79 mL/min; GLUCOSE RANDOM 84.0 mg/dL (70-99); POTASSIUM,K 4.7 mmol/L (3.5-5.1); PROTEIN TOTAL,TP 4.9 g/dL (6.4-8.2); SODIUM,NA 137.0 mmol/L (136-145)
[2025-03-27 07:12] LABS: A/G RATIO 0.81; ESTIMATED GFR 22.0 mL/min (>=60)
[2025-03-27] MEDS: URSODIOL PO SCH (09:59)
[2025-03-28 06:19] LABS: PLATELET COUNT,PLT 168 10^3/uL (150-450); RED BLOOD CELL COUNT 2.63 10^6/uL (4.6-6.2); WHITE BLOOD CELL COUNT,WBC 6.9 10^3/uL (5.0-10.0)
[2025-03-28 06:29] LABS: BASOPHILS PERCENT AUTO 0.1 % (0.0-1.0); EOSINOPHILS PERCENT AUTO 1.6 % (1.0-3.0); LYMPHOCYTES PERCENT AUTO 6.3 % (20.5-50.1); MONOCYTES PERCENT AUTO 12.8 % (2-8); NEUTROPHILS PERCENT AUTO 79.2 % (42.2-75.2)
[2025-03-28 06:38] LABS: B-TYPE NATRIURETIC PEPTIDE,BNP 417.0 pg/ml (0-100)
[2025-03-28 06:48] LABS: ALANINE AMINOTRANSFERASE,ALT 14.0 U/L (16-63); ASPARTATE AMNIOTRANSFERASE,AST 14.0 U/L (15-37); BILIRUBIN TOTAL 0.3 mg/dL (0.2-1.0); BLOOD UREA NITROGEN,BUN 57.0 mg/dL (7-18); CARBON DIOXIDE,CO2 22.0 mmol/L (21-32); CHLORIDE,CL 106.0 mmol/L (98-107); CREATININE 2.89 mg/dL (0.70-1.30); EST CRCL DRUG DOSING (CG) 14.75 mL/min; GLUCOSE RANDOM 85.0 mg/dL (70-99); POTASSIUM,K 4.7 mmol/L (3.5-5.1); PROTEIN TOTAL,TP 5.1 g/dL (6.4-8.2); SODIUM,NA 136.0 mmol/L (136-145)
[2025-03-28 06:52] LABS: A/G RATIO 0.76; ESTIMATED GFR 20.0 mL/min (>=60)
[2025-03-28 07:23] LABS: EOSINOPHILS PERCENT MAN 1 % (1-3); LYMPHOCYTES PERCENT MAN 7 % (20-50); MONOCYTES PERCENT MAN 8 % (2-8); SEG NEUTROPHILS PERCENT MAN 84 % (42-75)
[2025-03-28 12:04] VITALS: BP 122/58; PULSE 64
== END 2025-03-28 11:10 | disposition home or self-care (01) | DRG 193 ==
LOC: DL.ED 17:05 → DL.MS 20:05
PROVIDERS: ADMIT Internal Medicine; ATTEND Internal Medicine
PROC: 0W993ZZ Drainage of Right Pleural Cavity, Percutaneous Approach (ICD-10-PCS; principal; 2025-03-25)
DX: J18.9 Pneumonia, unspecified organism (principal); I50.33 Acute on chronic diastolic (congestive) heart failure; I12.9 Hypertensive chronic kidney disease with stage 1 through stage 4 chronic kidney disease, or unspecified chronic kidney disease; I13.0 Hypertensive heart and chronic kidney disease with heart failure and stage 1 through stage 4 chronic kidney disease, or unspecified chronic kidney disease; J90 Pleural effusion, not elsewhere classified; E44.0 Moderate protein-calorie malnutrition; N18.4 Chronic kidney disease, stage 4 (severe); Z91.048 Other nonmedicinal substance allergy status; E87.1 Hypo-osmolality and hyponatremia; Z88.1 Allergy status to other antibiotic agents; E83.42 Hypomagnesemia; Z98.890 Other specified postprocedural states; H54.7 Unspecified visual loss; D63.8 Anemia in other chronic diseases classified elsewhere; Z68.20 Body mass index [BMI] 20.0-20.9, adult; Z88.0 Allergy status to penicillin; Z88.8 Allergy status to other drugs, medicaments and biological substances; Z88.2 Allergy status to sulfonamides; Z79.899 Other long term (current) drug therapy; Z86.16 Personal history of COVID-19
CPT/HCPCS: 36415; 71045; 71046; 71250; 74018; 80053; 82947; 83735; 83880; 84439; 84443; 85025; 86140; 87040; 87070; 87493; 88112; 88305; 88341; 88342; 93306; 94010; 99284; 99285; A9270-GY; J0456; J0696; J3475; J7050

== ENCOUNTER 2025-06-14 10:40 | Emergency (ER) | payer MEDICARE, OTHER ==
[2025-06-14] MEDS: Bumetanide 1 MG/4 ML MDV IVPUSH ONE (12:16)
[2025-06-14 12:31] VITALS: BP 112/58
[2025-06-14 12:46] VITALS: PULSE 63
== END 2025-06-14 12:38 ==
LOC: DL.ED 10:40
DX: J90 Pleural effusion, not elsewhere classified (principal); I12.9 Hypertensive chronic kidney disease with stage 1 through stage 4 chronic kidney disease, or unspecified chronic kidney disease; N18.4 Chronic kidney disease, stage 4 (severe); Z88.0 Allergy status to penicillin; Z88.2 Allergy status to sulfonamides; Z88.8 Allergy status to other drugs, medicaments and biological substances; Z88.1 Allergy status to other antibiotic agents; Z79.899 Other long term (current) drug therapy; Z86.16 Personal history of COVID-19
CPT/HCPCS: 96374; 99285-25; J1939